=== PATIENT | male | born 1930 | race Caucasian/White ===

== ENCOUNTER 2017-03-25 06:33 | Day surgery (SDC) | payer OTHER ==
[~2017-03-25] VITALS: Ht 172.7 cm; Wt 91.0 kg
[2017-03-25] MEDS ORDERED: ATROPINE 1 MG/10 ML SYRINGE IV PRN (07:00)
[2017-03-25] MEDS ORDERED: DIPHENHYDRAMINE 50 MG INJ IV PRN (07:00)
[2017-03-25] MEDS ORDERED: MEPERIDINE 25 MG INJ IV PRN (07:00)
[2017-03-25] MEDS ORDERED: EPHEDrine SULFATE 50 MG/5 ML SYG IV PRN (07:00)
[2017-03-25] MEDS ORDERED: HYDROmorphONE (0.2 MG/ML) 10ML SYG IV PRN ×3 (07:00)
[2017-03-25] MEDS ORDERED: hydrALAzine 20 MG INJ IV PRN (07:00)
[2017-03-25] MEDS ORDERED: ONDANSETRON 4 MG INJ IV PRN ×2 (07:00→14:30)
[2017-03-25] MEDS ORDERED: LABETALOL HCL 20MG INJ IV PRN (07:00)
[2017-03-25] MEDS ORDERED: OXYCODONE/ACETAMINOPHEN (5/325) TAB PO PRN ×2 (07:00)
[2017-03-25] MEDS ORDERED: morphine (1 MG/ML) 10ML SYRINGE IV PRN ×3 (07:00)
[2017-03-25] MEDS ORDERED: MIDAZOLAM 1 MG/ML 2 ML INJ IV PRN (07:00)
[2017-03-25] MEDS ORDERED: FENTAnyl 50 MCG/ML VIAL IV PRN ×2 (07:00)
[2017-03-25] MEDS ORDERED: TAMS-14 PO (07:23)
[2017-03-25] MEDS ORDERED: FINA5TAB4 PO (07:24)
[2017-03-25] MEDS ORDERED: DOCU100C26 PO (07:24)
[2017-03-25] MEDS ORDERED: PANT40TA3 PO (07:25)
[2017-03-25] MEDS ORDERED: PARO20TA58 PO (07:25)
[2017-03-25] MEDS ORDERED: TRAZ100T15 PO (07:25)
[2017-03-25] MEDS ORDERED: CHOL200073 PO (07:26)
[2017-03-25] MEDS ORDERED: LOSA100T7 PO (07:26)
[2017-03-25 07:27] VITALS: Ht 172.7 cm; Wt 91.0 kg
[2017-03-25 07:33] LABS: HEMATOCRIT 22.8 % (42.0-52.0)
[2017-03-25 07:35] VITALS: BP 142/68; PULSE 76; RESP 18
[2017-03-25 07:40] LABS: HEMOGLOBIN 6.3 g/dl (14.0-18.0)
--- NOTE | 2017-03-25 12:57 | CONS ---
DATE OF ADMISSION: 03/25/2017 DATE OF CONSULTATION: HISTORY OF PRESENT ILLNESS: Eunice is an 87-year-old male with a 3-year history of gross hematuria. He has been to the emergency room on multiple occasions due to his gross hematuria and anemia. The patient presents today for cystoscopy, possible transurethral resection of a bladder tumor. On 03/04/2017 , the patient's hemoglobin was noted to be 7.4. He was preoperatively evaluated by his primary doctor, who did not feel at this time a transfusion preoperatively would be required. Upon presentation to the hospital today, the patient was noted to have a hemoglobin of 6.3 and thus surgery has been canceled prior to stabilization of his HG. He denies any shortness of breath, chest pain. His vital signs are stable. He has been having on and off gross hematuria for several years There have been no fevers, sweats or chills. Outpatient CT urogram noted for a complex renal cyst and a mass adjacent to the right UVJ. Cytso in office was limited due to hematuria. PAST MEDICAL HISTORY: Bladder cancer, Hypertension. PAST SURGICAL HISTORY: Appendectomy and prostate surgery, s/p TURBT. ALLERGIES: POSSIBLE PROSTATE MEDICATION. MEDICATIONS: 1. Proscar. 2. Tamsulosin. 3. Hypertensive medicine. PHYSICAL EXAMINATION: VITAL SIGNS: Stable. GENERAL: Comfortable male in no apparent distress. LUNGS: Good breath sounds bilaterally. HEART: Regular rate and rhythm. ABDOMEN: Soft, nondistended, nontender. No palpable masses flank, no CVA tenderness, no masses. GENITALIA: Normal shaft of penis, meatus, scrotum, testicles and epididymis. Under sterile technique, a 22-Japanese 3-way Gamboa catheter was easily inserted into the bladder. Light pink urine was drained. This was irrigated with 100 mL of sterile saline. All efflux was noted to be clear. IMPRESSION: Bladder cancer, gross hematuria, anemia. PLAN: The case has been discussed with his primary care physician who has suggested he first be transfused, stabilized and then to proceed with surgery. Case has also been discussed with patient and son. He will be admitted to medicine, receive transfusion, and when cleared, to proceed with cysto, possible TURBT, TURP, coagulation of bleeding points. Once again I discussed the planned procedure, how he is a high risk patient, the potential for inability to remove all tumor, possible requirement for a secondary procedure, incontinence, ED, open procedure, and continuation of bleeding. They understand that a TUR has a risk for perforation and that he maybe at a higher risk for perforation. In light of his age, they defer palliative care and would like to stop his chronic bleeding. All questions have been answered. I feel they are well informed of my concerns. Dictated By: RAVIN CHO/CORINNE Conf#: [id number] DID#: [id number]
[2017-03-25] MEDS ORDERED: HYDROCODONE/APAP (5/325) TAB PO PRN (14:30)
[2017-03-25] MEDS ORDERED: NACL 0.9% 3 ML SYG IV SCH (14:30)
[2017-03-25] MEDS ORDERED: ACETAMINOPHEN 325 MG TAB PO PRN (14:30)
[2017-03-27] MEDS ORDERED: FER325 PO (13:44)
== END 2017-03-25 10:06 | disposition home or self-care (01) ==
LOC: SDS 06:33
PROVIDERS: ATTEND Urology
DX: C67.9 Malignant neoplasm of bladder, unspecified (principal)
CPT/HCPCS: 36430; 85014; 85018; 86850; 86900; 86901; 86920; P9016

== ENCOUNTER 2017-03-25 10:02 | Inpatient (IN) | END 2017-03-27 15:50 | disposition home or self-care (01) | DRG 669 | DX: C67.0 Malignant neoplasm of trigone of bladder (principal); D62 Acute posthemorrhagic anemia; D61.818 Other pancytopenia; R31.0 Gross hematuria; C67.1 Malignant neoplasm of dome of bladder; C67.4 Malignant neoplasm of posterior wall of bladder; C67.2 Malignant neoplasm of lateral wall of bladder; D50.9 Iron deficiency anemia, unspecified; I10 Essential (primary) hypertension ==